=== PATIENT | male | born 1945 | race Caucasian/White ===

== ENCOUNTER 2018-04-13 08:17 | Outpatient (CLI) | payer MEDICARE, SELFPAY ==
[2018-04-13 09:49] LABS: Hemoglobin A1C 6.7 % (4.5-6.2)
[2018-04-13 10:25] LABS: Anion Gap 13.7 mmol/L (3-11); BUN 20 mg/dL (7-18); CO2 26.3 mmol/L (21.0-32.0); CREATININE 0.91 mg/dL (0.70-1.30); Calcium 9.4 mg/dL (8.5-10.1); Chloride 104 mmol/L (98-107); Glucose 95 mg/dL (70-100); Sodium 144 mmol/L (136-145)
== END 2018-04-13 08:37 ==
PROVIDERS: PCP Family Medicine; Visit Provider Nurse Practitioner Adult Health
DX: E11.9 Type 2 diabetes mellitus without complications (principal); I50.30 Unspecified diastolic (congestive) heart failure
CPT/HCPCS: 80048; 83036

== ENCOUNTER 2018-06-15 16:44 | Outpatient (REF) | payer MEDICARE, SELFPAY ==
--- NOTE | 2018-06-15 13:45 | SKI_PTH ---
PATIENT: JONATHON JIMENEZ LOC: [facility] U#:[id number] AGE/SX: 73/M ROOM: RE06/15/[address]: Shantal Yan MD, DC : 1945 BED: DIS: 06/15/2018 SPEC #: [id number] RECD: 06/16/18 12:31 STATUS: ELIZA MORENO #: [id number] MOHINDER: 06/15/18 13:[address]: Shantal Yan DEPT: Surgical Specimen RECD BY: Alisa Presley Tissues: 1 - SKIN BIOPSY(SHAVE/PUNCH) Procedures: SKIN LEVEL 4 Comments: [id number]
== END 2018-06-15 17:04 ==
LOC: LBN 16:44
PROVIDERS: PCP Family Medicine; Visit Provider Family Medicine
DX: L98.8 Other specified disorders of the skin and subcutaneous tissue (principal); D48.5 Neoplasm of uncertain behavior of skin
CPT/HCPCS: 88305

== ENCOUNTER 2018-07-17 08:56 | Outpatient (CLI) | payer MEDICARE, SELFPAY | END 2018-07-17 09:16 | PROVIDERS: PCP Family Medicine; Visit Provider Family Medicine | DX: E11.65 Type 2 diabetes mellitus with hyperglycemia (principal) | CPT/HCPCS: 36415; 83036 ==

== ENCOUNTER 2018-11-01 01:32 | Outpatient (CLI) | payer MEDICARE, SELFPAY ==
[2018-11-02 09:18] LABS: Hemoglobin A1C 7.7 % (4.5-6.2)
== END 2018-11-01 01:52 ==
PROVIDERS: PCP Family Medicine; Visit Provider Family Medicine
DX: E11.65 Type 2 diabetes mellitus with hyperglycemia (principal); E11.8 Type 2 diabetes mellitus with unspecified complications
CPT/HCPCS: 36415; 83036

== ENCOUNTER 2019-01-29 08:47 | Outpatient (CLI) | payer MEDICARE, SELFPAY ==
[2019-01-29 12:03] LABS: ALT 29 U/L (16-63); AST 13 U/L (15-37); Albumin 3.7 g/dL (3.4-5.0); Alkaline Phosphatase 90 U/L (46-116); BUN 20 mg/dL (7-18); Bilirubin, Total 0.5 mg/dL (0.2-1.0); Calcium 8.5 mg/dL (8.5-10.1); Chloride 105 mmol/L (98-107); Glucose 94 mg/dL (70-100); Potassium 3.9 mmol/L (3.5-5.1); Sodium 144 mmol/L (136-145); Total Protein 6.6 g/dL (6.4-8.2)
[2019-01-29 12:38] LABS: Hemoglobin A1C 7.8 % (4.5-6.2)
== END 2019-01-29 09:07 ==
PROVIDERS: PCP Family Medicine; Visit Provider Family Medicine
DX: I10 Essential (primary) hypertension (principal); E11.9 Type 2 diabetes mellitus without complications
CPT/HCPCS: 36415; 80053; 83036

== ENCOUNTER 2019-05-04 16:05 | Outpatient (CLI) | payer MEDICARE, SELFPAY | END 2019-05-04 16:25 | LOC: LBO 16:08 → LBN 16:39 | PROVIDERS: PCP Family Medicine; Visit Provider Family Medicine | DX: R19.7 Diarrhea, unspecified (principal) | CPT/HCPCS: 87324 ==